=== PATIENT | female | born 1990 | race Caucasian/White ===

== ENCOUNTER 2017-03-24 21:42 | Emergency (ER) | payer OTHER ==
[~2017-03-24] VITALS: Ht 157.5 cm; Wt 56.7 kg
--- NOTE | ~2017-03-24 | CT71 ---
[facility] A Service of [facility] RADIOLOGY TEXT RESULTS PATIENT: OMAR WORTHINGTON LOCATION: [place] : [birth year] UNIT #: [id number] AGE: [address]: Kodi Vallejo DO SEX: F ORDER DR: [id number] [facility] [address] [place], [place] [address] [id number] MR#: [id number] Acc #: [id number] NAME: OMAR WORTHINGTON : 1990 SEX: F STUDY DATE/TIME: 03/25/2017 0:41 UNIT: [facility] ROOM: STUDY DESCRIPTION: CT Head Wo Contrast Attending Physician: Kodi Vallejo D.O. Ordering Physician: Kodi Vallejo D.O. Primary Care Physician: [facility], [facility]. MEDICAL IMAGING REPORT This report is preliminary unless electronic signature is present EXAM CT head without contrast INDICATION Right eye blurred vision and right ear hearing loss. Right arm tingling for the past [address] of the head. This CT exam was performed with one or more of the following radiation dose reduction techniques: automatic exposure control, adjustment of mA and/or kV according to patient size, and iterative reconstruction. COMPARISON None FINDINGS There is no acute hemorrhage, abnormal mass effect, extraaxial fluid collection or hydrocephalus. No depressed calvarial fracture. Paranasal sinuses and mastoid air cells clear. IMPRESSION No acute intracranial findings. Dictated by... Artur Javier M.D. THIS IS AN ELECTRONICALLY VERIFIED REPORT Artur Javier M.D. at 03/25/2017 10:03 PM JULIANNE/iban TD: 03/25/2017 09:46 [facility] A Service [facility] RADIOLOGY TEXT RESULTS PATIENT: OMAR WORTHINGTON LOCATION: [place] : [birth year] UNIT #: [id number] AGE: [address]: Kodi Vallejo DO SEX: F ORDER DR: ZULMA #: [id number] MEDICAL IMAGING REPORT Page 1 of 1 COPY
[2017-03-25 00:51] LABS: URINE SOURCE CLEAN CATCH
[2017-03-25 01:15] LABS: URINE APPEARANCE TURBID; URINE BILIRUBIN NEG (NEG); URINE BLOOD NEG (NEG); URINE COLOR YELLOW; URINE GLUCOSE 500 MG/DL (NEG); URINE KETONE NEG (NEG); URINE LEUKOCYTE ESTERASE 2+ (NEG); URINE NITRATE NEG (NEG); URINE PH 7.5 (5-8); URINE PROTEIN NEG (NEG)
[2017-03-25 01:18] LABS: CULTURE INDICATED? YES; URINE BACTERIA AUWI 1+ (NEGATIVE); URINE SQUAMOUS EPITHELIAL CELL FEW /[HPF]; UWBCS1 AUWI 25-50 (0-5)
[2017-03-25 01:24] LABS: URINE AMORPHOUS SEDIMENT AMORP PHOSPHATES
== END 2017-03-25 02:09 | disposition home or self-care (01) ==
LOC: CED 21:42
PROVIDERS: Emergency Medicine
DX: N39.0 Urinary tract infection, site not specified (principal); R20.0 Anesthesia of skin; H72.91 Unspecified perforation of tympanic membrane, right ear; F17.200 Nicotine dependence, unspecified, uncomplicated
CPT/HCPCS: 70450; 81003; 84703; 87086; 99284